=== PATIENT | female | born 1995 | race Caucasian/White ===

== ENCOUNTER 2021-11-20 18:21 | Emergency (ER) | payer OTHER ==
[2021-11-20 19:11] VITALS: BP 116/73; PULSE 72; TEMP 97.5; BMI 21.0
[2021-11-20] MEDS ORDERED: ACETAMINOPHEN 500 MG TABLET (FP) PO ONE (19:11)
[2021-11-20] MEDS ORDERED: ACETAMINOPHEN 325 MG TABLET (FP) ONE (19:22)
== END 2021-11-20 22:51 | disposition home or self-care (01) ==
LOC: JER 18:21
DX: M54.2 Cervicalgia (principal); V49.9XXA Car occupant (driver) (passenger) injured in unspecified traffic accident, initial encounter
CPT/HCPCS: 70450-TC; 71045-TC-FY; 72125-TC; 72128-TC; 84703; 99284-25

== ENCOUNTER 2024-01-12 22:29 | Emergency (ER) | payer OTHER ==
[2024-01-12 22:38] VITALS: BMI 21.0
[2024-01-12] MEDS ORDERED: ALBUTEROL SO4 2.5/IPRATROPIUM 0.5 INH SOL 3 ML VIAL.NEB. NEB ONE (23:51)
[2024-01-13] MEDS: ALBUTEROL SO4 2.5/IPRATROPIUM 0.5 INH SOL 3 ML VIAL.NEB. NEB ONE (00:14)
[2024-01-13] MEDS: IBUPROFEN 600 MG TABLET (FP) PO ONE (00:14)
[2024-01-13 00:37] LABS: BASO % 0.4 % (0-2.0); EOS % 0.9 % (0-4.5); HEMATOCRIT 40.7 % (32.4-45.2); HEMOGLOBIN 14.1 GM/dL (10.7-15.3); LYMPH % 44.3 % (8-40); MCH 29.6 pg (25.7-33.7); MCHC 34.5 g/dl (32.0-36.0); MEAN CELL VOLUME 85.8 fl (80-96); MONO % 6.5 % (3.8-10.2); NEUT % 47.9 % (42.8-82.8); PLATELET COUNT 339 10^3/uL (134-434); RBC 4.75 M/mm3 (3.60-5.2); RDW 13.3 % (11.6-15.6); WHITE BLOOD COUNT 9.7 K/mm3 (4.0-10.0)
[2024-01-13 00:55] LABS: POTASSIUM 3.7 mmol/L (3.5-5.1)
[2024-01-13 00:56] LABS: CALCIUM 9.2 mg/dL (8.5-10.1)
[2024-01-13 01:00] LABS: ALBUMIN 4.2 g/dl (3.4-5.0); BLOOD UREA NITROGEN 11.9 mg/dL (7-18); CREATININE 0.8 mg/dL (0.55-1.3)
[2024-01-13 01:02] LABS: BILIRUBIN,TOTAL 0.6 mg/dL (0.2-1); TOT PROT 7.4 g/dl (6.4-8.2)
[2024-01-13] MEDS ORDERED: ACETAMINOPHEN INJECTION 100 ML IVPB ONE (01:36)
[2024-01-13] MEDS: ACETAMINOPHEN 1000 MG/100 ML BAG IVPB ONE (01:44)
[2024-01-13] MEDS ORDERED: LIDOCAINE 4% PATCH TP ONE (04:19)
[2024-01-13] MEDS: LIDOCAINE 4% PATCH TP ONE (04:28)
[2024-01-13 04:31] VITALS: BP 101/55; PULSE 74; RESP 18; TEMP 97.6
== END 2024-01-13 04:34 | disposition home or self-care (01) ==
LOC: JER 22:29
PROC: 3E033NZ Introduction of Analgesics, Hypnotics, Sedatives into Peripheral Vein, Percutaneous Approach (ICD-10-PCS; principal; 2024-01-13)
PROC: 3E0F7GC Introduction of Other Therapeutic Substance into Respiratory Tract, Via Natural or Artificial Opening (ICD-10-PCS; 2024-01-13)
DX: R06.02 Shortness of breath (principal); R05.9 Cough, unspecified; R07.81 Pleurodynia; Z20.822 Contact with and (suspected) exposure to COVID-19
CPT/HCPCS: 0241U-QW; 36415; 71046-TC-FY; 71275-TC; 80053; 84703; 85025; 85379; 93005; 93010; 99285-25; J0131; Q9967